=== PATIENT | female | born 1955 | race Caucasian/White ===

== ENCOUNTER 2023-07-31 13:19 | Emergency (ER) | payer MEDICARE ==
[~2023-07-31] VITALS: Ht 172.7 cm; Wt 66.3 kg
[2023-07-31 14:11] LABS: BASO % 0.5 % (0.0-1.0); EOS # 0.1 10^3/uL (0.0-0.5); EOS % 1.6 % (0.0-3.0); HEMATOCRIT 44.1 % (36.0-47.0); HEMOGLOBIN 14.2 g/dl (12.0-15.5); LYMPH # 2.2 10^3/uL (1.5-5.0); LYMPH % 25.2 % (24.0-44.0); MEAN CORPUSCULAR HEMOGLOBIN 29.6 pg (27.0-33.0); MEAN CORPUSCULAR HGB CONC 32.2 g/dl (32.0-36.5); MEAN CORPUSCULAR VOLUME 92.1 fl (80.0-96.0); MONO # 0.7 10^3/uL (0.0-0.8); MONO % 7.5 % (2.0-8.0); NEUTROPHILS # 5.7 10^3/uL (1.5-8.5); PLATELET COUNT, AUTOMATED 310 10^3/uL (150-450); RED BLOOD COUNT 4.79 10^6/uL (4.00-5.40); WHITE BLOOD COUNT 8.8 10^3/uL (4.0-10.0)
[2023-07-31 14:37] LABS: ALBUMIN 3.8 G/DL (3.2-5.2); ALKALINE PHOSPHATASE 77 U/L (46-116); ALT/SGPT 16 U/L (7.0-40); AST/SGOT 23 U/L (<34); BILIRUBIN,DIRECT 0.1 MG/DL (<0.4); BILIRUBIN,TOTAL 0.4 MG/DL (0.3-1.2); BLOOD UREA NITROGEN 13 MG/DL (9-23); CALCIUM LEVEL 9.9 MG/DL (8.3-10.6); CARBON DIOXIDE LEVEL 27 MMOL/L (20-31); CHLORIDE LEVEL 101 MMOL/L (98-107); CREATININE FOR GFR 0.78 MG/DL (0.55-1.30); GLOMERULAR FILTRATION RATE > 60.0 (>45); GLUCOSE, FASTING 131 MG/DL (74-106); POTASSIUM SERUM 5.8 MMOL/L (3.5-5.1); SODIUM LEVEL 136 MMOL/L (136-145)
[2023-07-31 14:39] LABS: VENOUS BASE EXCESS -2.5 (-2.0-2.0); VENOUS HCO3 22.6 MMOL/L (23.0-27.0); VENOUS PARTIAL PRESSURE CO2 40.3 mmHg (38.0-50.0); VENOUS PARTIAL PRESSURE O2 47.4 mmHg (30.0-50.0); VENOUS PH 7.367 UNITS (7.330-7.430); VENOUS TOTAL CO2 23.9 MMOL/L (24.0-28.0)
[2023-07-31 14:45] LABS: THYROXINE (T4) 11.1 UG/DL (4.5-10.9)
[2023-07-31 14:46] LABS: THYROID STIMULATING HORMONE 4.538 uIU/ML (0.55-4.78)
[2023-07-31 15:01] LABS: PROCALCITONIN <0.04 ng/ml
[2023-07-31 15:16] LABS: RSV AMPLIFICATION NEGATIVE (NEGATIVE)
[2023-07-31 16:37] LABS: INR 1.04; PROTHROMBIN TIME 13.3 SECONDS (12.5-14.5)
[2023-07-31 19:48] LABS: CK-MB VALUE MASS < 1.0 NG/ML (<3.6)
[2023-07-31 19:49] LABS: CPK CREATINE PHOSPHOKINASE 50 U/L (34-145)
[2023-07-31] MEDS ORDERED: FUROSEMIDE 100MG/10ML VIAL IV ONE (20:10)
[2023-07-31] MEDS ORDERED: ASPI-1 PO (23:54)
[2023-07-31] MEDS ORDERED: IBUP200T46 PO (23:54)
[2023-07-31] MEDS ORDERED: HOME MED LIST COMPLETE! XX SCH (23:55)
[2023-08-01 06:15] VITALS: TEMP 96.9
[2023-08-01 06:45] VITALS: BP 97/52; O2SAT 93
== END 2023-08-01 06:58 | disposition short-term general hospital (02) ==
LOC: M ED 13:19
DX: R06.02 Shortness of breath (principal); I50.9 Heart failure, unspecified; Z11.52 Encounter for screening for COVID-19
CPT/HCPCS: 71045; 80048; 80076; 82550; 82553; 82803; 83605; 83880; 84145; 84436; 84443; 84484; 85025; 85610; 87040; 87486; 87581; 87631; 87633; 87798; 93005; 93041; 93306; 94760; 96374; 99285; J1940